=== PATIENT | male | born 1990 | race African-American/Black ===

== ENCOUNTER 2017-05-28 18:29 | Inpatient (IN) | payer MEDICARE ==
[~2017-05-28] VITALS: Ht 177.8 cm; Wt 63.5 kg
[2017-05-28] MEDS ORDERED: KETOROLAC 60MG/2ML VIAL IM ONE (19:30)
[2017-05-28 19:57] LABS: INR 1.2; PARTIAL THROMBOPLASTIN TIME 26.4 sec (23.4-31.0); PROTHROMBIN TIME 12.6 sec (9.4-11.6)
[2017-05-28 20:00] LABS: BASOPHILS % 1.2 % (0.0-2.0); EOSINOPHILS % 1.4 % (0.0-5.0); LYMPHOCYTES % 28.4 % (20.0-50.0); MEAN CORPUSCULAR HEMOGLOBIN 33.3 pg (28.0-32.0); MEAN CORPUSCULAR VOLUME 87.6 fL (80.0-94.0); MEAN PLATELET VOLUME 9.1 fl (7.4-10.4); MONOCYTES % 9.9 % (2.0-8.0); NEUTROPHILS % 59.1 % (40.0-76.0); PLATELET 235 x1000/uL (130-400); RED BLOOD CELL COUNT 1.28 mill/uL (4.7-6.1); RED CELL DISTRIBUTION WIDTH 25.3 % (11.6-14.6)
[2017-05-28] MEDS ORDERED: SODIUM CHLORIDE 0.9% 1,000 ML IV ONE (21:03)
[2017-05-28] MEDS ORDERED: FUROSEMIDE 100MG/10ML VIAL IV STA (21:03)
[2017-05-28] MEDS ORDERED: CALCIUM CHLORIDE 1GM/10ML SYR IV ONE (21:15)
[2017-05-28] MEDS ORDERED: SODIUM POLYSTYRENE SULFONATE 15 G/60 ML BOT PO ONE (21:15)
[2017-05-28] MEDS ORDERED: DEXTROSE 50% WATER 50ML SYRINGE IV ONE (21:15)
[2017-05-28] MEDS ORDERED: SODIUM BICARBONATE 8.4% 1 MEQ/ML 50ML SYR IV ONE (21:15)
[2017-05-28] MEDS ORDERED: INSULIN REGULAR (HUMULIN R) 300UNITS/3ML IV ONE (21:15)
[2017-05-28 21:18] LABS: HEMATOCRIT. 11.2 % (42.0-52.0); HEMOGLOBIN. 4.3 g/dL (14.0-18.0)
[2017-05-28 21:21] LABS: BG FRACTION INSPIRED OXYGEN 21; BG HCO3 ACT 17.4 mmol/L (22.0-26.0); BG PH 7.368 (7.350-7.450); BG PO2 101.5 mmHg (75.0-100.0); BG SAMPLE SITE RIGHT RADIAL; BG TOTAL HEMOGLOBIN < 4.5 g/dL (12.0-18.0); BG VENT MODE ROOM AIR
[2017-05-28] MEDS ORDERED: ZOLPIDEM TARTRATE 5MG TABLET PO PRN (22:00)
[2017-05-28] MEDS ORDERED: ACETAMINOPHEN 325MG TABLET PO PRN (22:00)
[2017-05-28] MEDS ORDERED: DIPHENHYDRAMINE 50MG/ML VIAL IV PRN (22:00)
[2017-05-28] MEDS ORDERED: NA PHOS,M-B/NA PHOS,DI-BA ENEMA 118ML PR PRN (22:00)
[2017-05-28] MEDS ORDERED: IPRATROPIUM/ALBUTEROL 0.5-3(2.5)MG/3ML NEB INH PRN (22:00)
[2017-05-28] MEDS ORDERED: MAGNESIUM/ALUMINUM HYDROXIDE/SIMETHICONE 30ML UDC PO PRN (22:00)
[2017-05-28] MEDS ORDERED: SODIUM POLYSTYRENE SULFONATE 15 G/60 ML BOT PO NR (22:00)
[2017-05-28] MEDS ORDERED: CLONIDINE 0.1MG TABLET PO PRN (22:00)
[2017-05-28] MEDS ORDERED: DOCUSATE SODIUM 100MG CAPSULE PO PRN (22:00)
[2017-05-28] MEDS ORDERED: GUAIFENESIN 200MG/10ML SUGAR FREE UDC PO PRN (22:00)
[2017-05-28 22:01] LABS: PLATELET ESTIMATE NORMAL
[2017-05-28 23:21] LABS: CREATINE KINASE 94 IU/L (39-308); CREATINE KINASE MB FRACTION 0.7 ng/mL (0.5-3.6); TROPONIN I < 0.02 ng/mL (0.00-0.04)
[2017-05-29] VITALS (18 sets, daily range): BP systolic 103–132; BP diastolic 52–80
[2017-05-29] MEDS: SODIUM CHLORIDE 0.9% 1,000 ML IV SCH ×4 (01:37→17:49)
[2017-05-29] MEDS: MORPHINE SULFATE 2 MG/ML CPJ (NOT FOR IM USE) IV PRN ×4 (03:07→21:45)
[2017-05-29] MEDS: ONDANSETRON HCL 4MG/2ML VIAL IV PRN (03:07)
[2017-05-29] MEDS ORDERED: FOLI-43 PO (06:45)
[2017-05-29] MEDS ORDERED: HYDR2TAB4 PO (06:45)
[2017-05-29] MEDS ORDERED: FAMOTIDINE 20MG/2ML VIAL IV SCH (09:00)
[2017-05-29] MEDS ORDERED: FOLIC ACID/VITAMIN B COMP W-C TABLET PO SCH (09:00)
[2017-05-29] MEDS: FAMOTIDINE 20MG/2ML VIAL IV SCH (09:04)
[2017-05-29] MEDS: CITRIC ACID/SODIUM CITRATE SOLN 15ML UDC PO SCH ×3 (09:11→18:19)
[2017-05-29 09:51] LABS: BASOPHILS % 0.7 % (0.0-2.0); EOSINOPHILS % 1.3 % (0.0-5.0); LYMPHOCYTES % 26.1 % (20.0-50.0); MEAN CORPUSCULAR HEMOGLOBIN 32.3 pg (28.0-32.0); MEAN CORPUSCULAR VOLUME 89.7 fL (80.0-94.0); MEAN PLATELET VOLUME 9.1 fl (7.4-10.4); MONOCYTES % 8.6 % (2.0-8.0); NEUTROPHILS % 63.3 % (40.0-76.0); PLATELET 224 x1000/uL (130-400); RED BLOOD CELL COUNT 1.45 mill/uL (4.7-6.1); RED CELL DISTRIBUTION WIDTH 25.4 % (11.6-14.6)
[2017-05-29 09:53] LABS: CARBON DIOXIDE 17 mEq/L (21-32); CHLORIDE 120 mEq/L (98-107); CREATINE KINASE 99 IU/L (39-308); CREATINE KINASE MB FRACTION 0.5 ng/mL (0.5-3.6); TROPONIN I < 0.02 ng/mL (0.00-0.04)
[2017-05-29 10:01] LABS: HEMOGLOBIN. 4.7 g/dL (14.0-18.0)
[2017-05-29 15:53] LABS: CLARITY URINE CLEAR (CLEAR); COLOR URINE YELLOW (YELLOW); GLUCOSE URINE NEGATIVE (NEGATIVE); KETONES URINE NEGATIVE (NEGATIVE); LEUKOCYTE ESTERASE URINE NEGATIVE (NEGATIVE); NITRITE URINE NEGATIVE (NEGATIVE); OCCULT BLOOD URINE 1+ (NEGATIVE); PH URINE 5.5 (4.5-8.0); PROTEIN URINE 2+ (NEGATIVE); SPECIFIC GRAVITY URINE 1.012 (1.005-1.030)
[2017-05-29 16:02] LABS: *AMPHETAMINES SCREEN URINE NEGATIVE (NEGATIVE); *BARBITURATES SCREEN URINE NEGATIVE (NEGATIVE); *BENZODIAZEPINES SCREEN URINE NEGATIVE (NEGATIVE); *COCAINE SCREEN URINE PRESUMTIVE POSITIVE (NEGATIVE); CANNABINOID URINE SCREEN PRESUMTIVE POSITIVE (NEGATIVE); METHADONE URINE SCREEN NEGATIVE (NEGATIVE); OPIATES URINE SCREEN PRESUMTIVE POSITIVE (NEGATIVE); PHENCYCLIDINE URINE SCREEN NEGATIVE (NEGATIVE)
[2017-05-29 17:30] LABS: HEMATOCRIT 19.4 % (42.0-52.0); HEMOGLOBIN 6.9 g/dL (14.0-18.0)
[2017-05-30] VITALS (8 sets, daily range): BP systolic 104–141; BP diastolic 62–90
[2017-05-30] MEDS: MORPHINE SULFATE 2 MG/ML CPJ (NOT FOR IM USE) IV PRN ×3 (02:11→20:01)
[2017-05-30] MEDS: SODIUM CHLORIDE 0.9% 1,000 ML IV SCH ×2 (02:11→13:49)
[2017-05-30 06:45] LABS: BASOPHILS % 0.8 % (0.0-2.0); EOSINOPHILS % 3.3 % (0.0-5.0); HEMATOCRIT. 22.7 % (42.0-52.0); LYMPHOCYTES % 28.7 % (20.0-50.0); MEAN CORPUSCULAR HEMOGLOBIN 32.3 pg (28.0-32.0); MEAN CORPUSCULAR VOLUME 91.8 fL (80.0-94.0); MEAN PLATELET VOLUME 9.8 fl (7.4-10.4); MONOCYTES % 9.6 % (2.0-8.0); NEUTROPHILS % 57.6 % (40.0-76.0); PLATELET 259 x1000/uL (130-400); RED BLOOD CELL COUNT 2.47 mill/uL (4.7-6.1); RED CELL DISTRIBUTION WIDTH 19.6 % (11.6-14.6)
[2017-05-30 08:08] LABS: PHOSPHORUS 4.6 mg/dL (2.5-4.9)
[2017-05-30] MEDS: CITRIC ACID/SODIUM CITRATE SOLN 15ML UDC PO SCH ×3 (08:28→17:01)
[2017-05-30] MEDS: FAMOTIDINE 20MG/2ML VIAL IV SCH (08:29)
[2017-05-30] MEDS: FOLIC ACID 1MG TABLET PO SCH (08:29)
[2017-05-30] MEDS ORDERED: SODIUM POLYSTYRENE SULFONATE 15 G/60 ML BOT PO SCH (10:45)
[2017-05-30] MEDS: TRAMADOL 50MG TABLET PO PRN (17:00)
[2017-05-31] VITALS: BP 153/90
[2017-05-31] MEDS: SODIUM CHLORIDE 0.9% 1,000 ML IV SCH ×2 (00:02→09:49)
[2017-05-31] MEDS: MORPHINE SULFATE 2 MG/ML CPJ (NOT FOR IM USE) IV PRN ×3 (00:02→09:43)
[2017-05-31] MEDS: TRAMADOL 50MG TABLET PO PRN ×3 (03:17→14:40)
[2017-05-31 04:05] VITALS: BP 136/82
[2017-05-31] MEDS: ONDANSETRON HCL 4MG/2ML VIAL IV PRN ×2 (04:07→09:02)
[2017-05-31 08:00] VITALS: BP 131/78
[2017-05-31] MEDS: LORAZEPAM 2MG/ML CPJ IV PRN ×2 (08:29→14:23)
[2017-05-31 09:10] LABS: PHOSPHORUS 4.2 mg/dL (2.5-4.9)
[2017-05-31 09:24] LABS: BASOPHILS % 0.4 % (0.0-2.0); EOSINOPHILS % 2.1 % (0.0-5.0); HEMATOCRIT. 21.1 % (42.0-52.0); HEMOGLOBIN. 7.5 g/dL (14.0-18.0); LYMPHOCYTES % 10.2 % (20.0-50.0); MEAN CORPUSCULAR HEMOGLOBIN 32.8 pg (28.0-32.0); MEAN CORPUSCULAR VOLUME 91.6 fL (80.0-94.0); MEAN PLATELET VOLUME 9.6 fl (7.4-10.4); MONOCYTES % 9.1 % (2.0-8.0); NEUTROPHILS % 78.2 % (40.0-76.0); PLATELET 248 x1000/uL (130-400); RED CELL DISTRIBUTION WIDTH 21.1 % (11.6-14.6)
[2017-05-31] MEDS: FAMOTIDINE 20MG/2ML VIAL IV SCH (09:42)
[2017-05-31] MEDS: CITRIC ACID/SODIUM CITRATE SOLN 15ML UDC PO SCH ×2 (09:42→14:17)
[2017-05-31] MEDS: FOLIC ACID 1MG TABLET PO SCH (09:42)
[2017-05-31] MEDS ORDERED: AMLODIPINE 5MG TABLET PO SCH (10:00)
[2017-05-31] MEDS ORDERED: MAGNESIUM 2 G PREMIX 50 ML IV NR (10:30)
[2017-05-31 12:00] VITALS: BP 136/77
[2017-05-31 13:34] VITALS: BP 136/77
[2017-05-31 16:00] VITALS: BP 153/90
== END 2017-05-31 16:50 | disposition home or self-care (01) | DRG 682 ==
LOC: ER 18:29 → 7WST 21:37 → ENRESERV 22:02 → 7WST 05-29 07:18
PROVIDERS: ADMIT Internal Medicine; ATTEND Internal Medicine
PROC: 30233N1 Transfusion of Nonautologous Red Blood Cells into Peripheral Vein, Percutaneous Approach (ICD-10-PCS; principal; 2017-05-29)
DX: N17.0 Acute kidney failure with tubular necrosis (principal); D57.00 Hb-SS disease with crisis, unspecified; E87.2 Acidosis; E44.1 Mild protein-calorie malnutrition; E87.5 Hyperkalemia; R17 Unspecified jaundice; D72.829 Elevated white blood cell count, unspecified; F14.10 Cocaine abuse, uncomplicated; Z85.828 Personal history of other malignant neoplasm of skin; Z90.49 Acquired absence of other specified parts of digestive tract; Z91.14 Patient's other noncompliance with medication regimen
CPT/HCPCS: 36415; 36430; 36600; 71010; 72100; 73502; 76770; 80048; 80053; 80076; 80305; 81001; 82270; 82375; 82550; 82553; 82805; 83615; 83690; 83735; 84100; 84484; 85014; 85018; 85025; 85044; 85610; 85660; 85730; 86850; 86900; 86920; 87040; 93005; 96361; 96372; 96374; 96375; 96376; 99285; J1200; J1815; J1885; J1940; J2060; J2270; J2405; J3475; J3490; J7030; J7050; J7620; P9016